=== PATIENT | male | born 1995 | race African-American/Black ===

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

== ENCOUNTER 2017-09-10 06:15 | Emergency (ER) | payer OTHER ==
[2017-09-10] MEDS ORDERED: IPRATROPIUM/ALBUTEROL 0.5-2.5 MG/3 ML AMPUL NEB ONE ×3 (06:20)
[2017-09-10] MEDS ORDERED: PREDNISONE 20 MG TABLET PO ONE (06:20)
--- NOTE | 2017-09-10 06:35 | ER Document Report ---
ED General - General Chief Complaint: Asthma Exacerbation Stated Complaint: DIFFICULTY BREATHING Time Seen by Provider: 09/10/17 06:19 Mode of Arrival: Ambulatory Information source: Patient Notes: 22 yr old male presents with complaints of cough sob as of yesterday. pt notes that he had uri symptoms, took otc cold medicine, but this morning he was sob. pt denies any nausea or vomiting. TRAVEL OUTSIDE OF THE [place] IN LAST 30 DAYS: No - HPI Onset: Yesterday Onset/Duration: Sudden Quality of pain: No pain Severity: Mild Pain Level: Denies Associated symptoms: Nonproductive cough, Shortness of breath Exacerbated by: Denies Relieved by: Denies Similar symptoms previously: No Recently seen / treated by doctor: No - Related Data Allergies/Adverse Reactions: No Known Allergies Allergy (Verified 08/23/13 07:40) Past Medical History - Social History Smoking Status: Never Smoker Cigarette use (# per day): No Chew tobacco use (# tins/day): No Smoking Education Provided: No Family History: Reviewed & Not Pertinent Pulmonary Medical History: Reports: Hx Asthma Renal/ Medical History: Denies: Hx Peritoneal Dialysis - Immunizations Immunizations up to date: Yes Review of Systems - Review of Systems Notes: REVIEW OF SYSTEMS: CONSTITUTIONAL : Denies fever, chills, or sweats. Denies recent illness. EENT: Denies eye, ear, throat, or mouth pain or symptoms. Denies nasal or sinus congestion or discharge. Denies throat, tongue, or mouth swelling or difficulty swallowing. CARDIOVASCULAR: Denies chest pain. Denies palpitations or racing or irregular heart beat. Denies ankle edema. RESPIRATORY: admits to sob, wheezing GASTROINTESTINAL: Denies abdominal pain or distention. Denies nausea, vomiting , or diarrhea. Denies blood in vomitus, stools, or per rectum. Denies black, tarry stools. Denies constipation. GENITOURINARY: Denies difficulty urinating, painful urination, burning, frequency, blood in urine, or discharge. MUSCULOSKELETAL: Denies back or neck pain or stiffness. Denies joint pain or swelling. SKIN: Denies rash, lesions or sores. HEMATOLOGIC : Denies easy bruising or bleeding. LYMPHATIC: Denies swollen, enlarged glands. NEUROLOGICAL: Denies confusion or altered mental status. Denies passing out or loss of consciousness. Denies dizziness or lightheadedness. Denies headache. Denies weakness or paralysis or loss of use of either side. Denies problems with gait or speech. Denies sensory loss, numbness, or tingling. Denies seizures. PSYCHIATRIC: Denies anxiety or stress. Denies depression, suicidal ideation, or homicidal ideation. ALL OTHER SYSTEMS REVIEWED AND NEGATIVE. Dictation was performed using [employer] voice recognition software PHYSICAL EXAMINATION: GENERAL: Well-appearing, well-nourished and in no acute distress. HEAD: Atraumatic, normocephalic. EYES: Pupils equal round and reactive to light, extraocular movements intact, sclera anicteric, conjunctiva are normal. ENT: Nares patent, oropharynx clear without exudates. Moist mucous membranes. NECK: Normal range of motion, supple without lymphadenopathy LUNGS:no wheezing, no resp distress, decreased breath sounds all throughout HEART: Regular rate and rhythm without murmurs ABDOMEN: Soft, nontender, nondistended abdomen. No guarding, no rebound. No masses appreciated. Musculoskeletal: Normal range of motion, no pitting or edema. No cyanosis. NEUROLOGICAL: Cranial nerves grossly intact. Normal speech, normal gait. Normal sensory, motor exams PSYCH: Normal mood, normal affect. SKIN: Warm, Dry, normal turgor, no rashes or lesions noted. Physical Exam - Vital signs Vitals: Temp Pulse Resp BP Pulse Ox 98.2 F 98 26 H 152/69 H 95 09/10/17 06:20 09/10/17 06:20 09/10/17 06:20 09/10/17 06:20 09/10/17 06:20 Course - Re-evaluation Re-evalutation: 09/10/17 06:35 Duo nebs steroids ordered patient overall looks quite well is in no distress 09/10/17 08:25 after breathing treatments patient states he feels better, will dc home with inhlaer and steroids and extremely close follow up After performing a Medical Screening Examination, I estimate there is LOW risk for ACUTE CORONARY SYNDROME, PULMONARY EMBOLI, RESPIRATORY FAILURE, SEPSIS OR MENINGITIS, thus I consider the discharge disposition reasonable. I have reevaluated this patient multiple times and no significant life threatening changes are noted. The patient and I have discussed the diagnosis and risks, and we agree with discharging home with close follow-up. We also discussed returning to the Emergency Department immediately if new or worsening symptoms occur. We have discussed the symptoms which are most concerning (e.g., changing or worsening pain, trouble swallowing or breathing, neck stiffness, fever) that necessitate immediate return. - Vital Signs Vital signs: Temp Pulse Resp BP Pulse Ox 98.2 F 98 25 H 132/76 H 95 09/10/17 06:20 09/10/17 06:20 09/10/17 07:55 09/10/17 07:55 09/10/17 07:55 - Diagnostic Test Radiology reviewed: Image reviewed, Reports reviewed Discharge - Discharge Clinical Impression: URI (upper respiratory infection) Qualifiers: URI type: unspecified viral URI Qualified Code(s): J06.9 - Acute upper respiratory infection, unspecified; B97.89 - Other viral agents as the cause of diseases classified elsewhere; B97.89 - Other viral agents as the cause of diseases classified elsewhere Condition: Stable Disposition: HOME, SELF-CARE Instructions: Upper Respiratory Illness ([facility]) Additional Instructions: Follow up with your physician tomorrow for further care or return to the ED IMMEDIATELY if symptoms worsen or new concerns occur. If you cannot afford to follow up with your primary care physician a list of low cost clinics have been provided at the end of your discharge papers as well. Prescriptions: Prednisone [Deltasone 20 mg Tablet] 3 tab PO DAILY 5 Days tablet
--- NOTE | 2017-09-10 08:04 | RADIOLOGY REPORT (SQ) ---
EXAM DESCRIPTION: CHEST PA/LAT CLINICAL HISTORY: left lower lobe pain COMPARISON: None. FINDINGS: Frontal and lateral views of the chest. The cardiomediastinal silhouette has normal size and contour. No consolidation, pneumothorax, or pleural effusion. No displaced rib fractures identified. Upper abdominal soft tissues are unremarkable. Leads overlie the chest. IMPRESSION: 1. No acute pulmonary process identified.
[2017-09-10] MEDS ORDERED: ALBUTEROL SULFATE HFA (90 MCG/PUFF) 8 GM MDI (1 MDI/ER DISP) IH PRN (08:37)
[2017-09-10 08:53] VITALS: BP 135/79
== END 2017-09-10 08:57 | disposition home or self-care (01) ==
LOC: ER 06:15
DX: J06.9 Acute upper respiratory infection, unspecified (principal); B97.89 Other viral agents as the cause of diseases classified elsewhere; J45.901 Unspecified asthma with (acute) exacerbation; R06.02 Shortness of breath; R05 Cough
CPT/HCPCS: 94640 ×2; 99285; 71020; J7512; J7620

== ENCOUNTER 2018-02-26 13:48 | Emergency (ER) | payer OTHER ==
[2018-02-26] MEDS ORDERED: ASPIRIN 81 MG TABLET, CHEWABLE PO ONE (14:39)
--- NOTE | 2018-02-26 14:42 | ER Document Report ---
ED Medical Screen (RME) - General Chief Complaint: Chest Pain Stated Complaint: CHEST PAIN Time Seen by Provider: 02/26/18 14:31 Notes: RAPID MEDICAL EVALUATION DISCLOSURE I have seen this patient as part of a Rapid Medical Evaluation and, if applicable, placed any initially appropriate orders. The patient will be seen and fully evaluated, including a full history and physical exam, by a provider ( in Main ED or Fast Track) when a room becomes available. 22-year-old male here with complaints of midsternal chest pain ongoing for the past 4 weeks. The pain lasts for 10-15 seconds each time he has an episode. The pain is not worse with exertion or breathing. He has been having about 3-4 episodes per week since onset. He does not have any shortness of breath lightheadedness diaphoresis nausea vomiting numbness tingling. Today while he was at work he had an episode of the pain. Someone was asking him questions about his chest pain and specifically asked him if he had any left arm pain ( which he did not have before his coworkers questioning), and immediately after being asked this question he became anxious and his left arm started hurting. The symptoms have resolved and he does not currently have any symptoms. He denies any hypertension diabetes hyperlipidemia tobacco or cocaine use. No prior history of CAD DVT PE. EXAM CTAB RRR Minimal to mild TTP of the left parasternal border at ribs 3-4 TRAVEL OUTSIDE OF THE [place] IN LAST 30 DAYS: No - Related Data Allergies/Adverse Reactions: No Known Allergies Allergy (Verified 08/23/13 07:40) Past Medical History - Social History Frequency of alcohol use: None Drug Abuse: None Pulmonary Medical History: Reports: Hx Asthma Renal/ Medical History: Denies: Hx Peritoneal Dialysis - Immunizations Immunizations up to date: Yes Physical Exam - Vital signs Vitals: Temp Pulse Resp BP Pulse Ox 98.7 F 55 L 16 113/46 L 99 02/26/18 14:04 02/26/18 14:04 02/26/18 14:04 02/26/18 14:04 02/26/18 14:04 Course - Vital Signs Vital signs: Temp Pulse Resp BP Pulse Ox 98.7 F 55 L 16 113/46 L 99 02/26/18 14:04 02/26/18 14:04 02/26/18 14:04 02/26/18 14:04 02/26/18 14:04
--- NOTE | 2018-02-26 15:27 | RADIOLOGY REPORT (SQ) ---
EXAM DESCRIPTION: CHEST 2 VIEWS COMPLETED DATE/TIME: 02/26/2018 3:11 pm REASON FOR STUDY: CP COMPARISON: 09/10/2017. EXAM PARAMETERS: NUMBER OF VIEWS: two views TECHNIQUE: Digital Frontal and Lateral radiographic views of the chest acquired. RADIATION DOSE: NA LIMITATIONS: none FINDINGS: LUNGS AND PLEURA: No opacities, masses or pneumothorax. No pleural effusion. MEDIASTINUM AND HILAR STRUCTURES: No masses or contour abnormalities. HEART AND VASCULAR STRUCTURES: Heart normal size. No evidence for failure. BONES: No acute findings. HARDWARE: None in the chest. OTHER: No other significant finding. IMPRESSION: NO ACUTE RADIOGRAPHIC FINDING IN THE CHEST. TECHNICAL DOCUMENTATION: JOB ID: [id number] [employer]- All Rights Reserved Reading location - IP/workstation name: [email or web address]
--- NOTE | 2018-02-26 15:30 | ER Document Report ---
ED General - General Chief Complaint: Chest Pain Stated Complaint: CHEST PAIN Time Seen by Provider: 02/26/18 14:31 Notes: 22-year-old male here with complaints of midsternal chest pain ongoing for the past 4 weeks. The pain lasts for 10-15 seconds each time he has an episode. The pain is not worse with exertion or breathing. He has been having about 3-4 episodes per week since onset. He does not have any shortness of breath lightheadedness diaphoresis nausea vomiting numbness tingling. Today while he was at work he had an episode of the pain. Someone was asking him questions about his chest pain and specifically asked him if he had any left arm pain ( which he did not have before his coworkers questioning), and immediately after being asked this question he became anxious and his left arm started hurting. The symptoms have resolved and he does not currently have any symptoms. He denies any hypertension diabetes hyperlipidemia tobacco or cocaine use. No prior history of CAD DVT PE. TRAVEL OUTSIDE OF THE [place] IN LAST 30 DAYS: No - Related Data Allergies/Adverse Reactions: No Known Allergies Allergy (Verified 08/23/13 07:40) Past Medical History - Social History Smoking Status: Never Smoker Frequency of alcohol use: None Drug Abuse: None Family History: Reviewed & Not Pertinent Patient has suicidal ideation: No Patient has homicidal ideation: No Pulmonary Medical History: Reports: Hx Asthma Renal/ Medical History: Denies: Hx Peritoneal Dialysis - Immunizations Immunizations up to date: Yes Review of Systems - Review of Systems Notes: See history of present illness for pertinent positive review of systems; otherwise all review of systems have been reviewed and are negative Physical Exam - Vital signs Vitals: Temp Pulse Resp BP Pulse Ox 98.7 F 55 L 16 113/46 L 99 02/26/18 14:04 02/26/18 14:04 02/26/18 14:04 02/26/18 14:04 02/26/18 14:04 - Notes Notes: PHYSICAL EXAMINATION: GENERAL: Well-appearing and in no acute distress. HEAD: Atraumatic, normocephalic. EYES: Pupils equal round and reactive to light, extraocular movements intact, sclera anicteric, conjunctiva are normal. ENT: nares patent, oropharynx clear without exudates. Moist mucous membranes. NECK: Normal range of motion, supple without lymphadenopathy LUNGS: CTAB and equal. No wheezes rales or rhonchi. HEART: Regular rate and rhythm without murmurs. Mild TTP of the left parasternal border at ribs 3-4 ABDOMEN: Soft, no tenderness. No facial grimacing/wincing upon palpation. No guarding, no rebound. EXTREMITIES: Normal range of motion, no pitting edema. No cyanosis. NEUROLOGICAL: Cranial nerves grossly intact. Normal sensory/motor exams. PSYCH: Normal mood, normal affect. SKIN: Warm, Dry, normal turgor, no rashes or lesions noted Course - Re-evaluation Re-evalutation: 02/26/18 15:30 MEDICAL DECISION MAKING: Low risk factors for ACS PE so I have low clinical suspicion for this His EKG shows some diffuse SC depressions so pericarditis is certainly a consideration Chest x-ray is unremarkable with no acute emergency findings Discussed these findings with the patient and prescription for meloxicam Instructed follow-up PCP next day or few Patient understands and agrees to the plan of care - Vital Signs Vital signs: Temp Pulse Resp BP Pulse Ox 98.7 F 55 L 16 113/46 L 99 02/26/18 14:04 02/26/18 14:04 02/26/18 14:04 02/26/18 14:04 02/26/18 14:04 Discharge - Discharge Clinical Impression: Chest pain in adult Condition: Good Disposition: HOME, SELF-CARE Instructions: Pericarditis ([facility]) Additional Instructions: You were seen in the emergency department at [facility]. The x- ray did not show any emergency findings. Treatment for pericarditis is anti- inflammatory medications for several weeks. Meloxicam is an anti-inflammatory medication. Please followup with your primary physician in the next few days for further management/evaluation. Please return to the emergency department for worsening of symptoms or any symptom that you deem to be concerning or life- threatening. Thank you for allowing us to be part of your care. Prescriptions: Meloxicam 7.5 mg PO DAILYP PRN #30 tablet PRN Reason:
[2018-02-26 15:53] VITALS: BP 113/51
--- NOTE | 2018-02-26 19:34 | EKG REPORT ---
SEVERITY:- ABNORMAL ECG - SINUS RHYTHM ST ELEVATION SUGGESTS NORMAL VARIANT. : Confirmed by: Conner Rodrigez MD 26-Feb-2018 19:33:20
== END 2018-02-26 15:53 | disposition home or self-care (01) ==
LOC: ER 13:48
DX: R07.9 Chest pain, unspecified (principal); M79.602 Pain in left arm; F41.9 Anxiety disorder, unspecified; J45.909 Unspecified asthma, uncomplicated
CPT/HCPCS: 71046; 93005; 93010; 99285

== ENCOUNTER 2018-09-14 12:37 | Emergency (ER) | payer OTHER ==
[2018-09-14 12:50] VITALS: BP 136/70
[2018-09-14 14:15] LABS: AMORPHOUS SEDIMENT,URINE 1+ /HPF; APPEARANCE,URINE TURBID; BILIRUBIN,URINE NEGATIVE (NEGATIVE); COLOR,URINE YELLOW; GLUCOSE, URINE NEGATIVE (NEGATIVE); KETONES,URINE NEGATIVE (NEGATIVE); LEUKOCYTE ESTERASE,URINE NEGATIVE (NEGATIVE); NITRITE,URINE NEGATIVE (NEGATIVE); PROTEIN,URINE NEGATIVE (NEGATIVE); URINE SPECIFIC GRAVITY 1.023; UROBILINOGEN,URINE NEGATIVE mg/dL (<2.0)
[2018-09-14] MEDS ORDERED: CEFTRIAXONE INJ 250 MG VIAL IM ONE (14:37)
[2018-09-14] MEDS ORDERED: LIDOCAINE 1% INJ-PF (10 MG/ML) 30 ML SDV INJ ONE (14:37)
[2018-09-14] MEDS ORDERED: AZITHROMYCIN 250 MG TABLET PO ONE (14:37)
--- NOTE | 2018-09-14 14:40 | ER Document Report ---
HPI - HPI Time Seen by Provider: 09/14/18 13:57 Pain Level: 3 Notes: Patient is an otherwise healthy 23-year-old male who presents with chief complaint of pain and redness at the tip of his penis. Patient requesting STD testing. Patient unknown if he has been exposed to STDs. Patient does report he had gonorrhea a year ago. He states he was treated but was never retested. Past Medical History - General Information source: Patient - Social History Smoking Status: Never Smoker Frequency of alcohol use: Occasional Drug Abuse: None Family History: Reviewed & Not Pertinent Pulmonary Medical History: Reports: Hx Asthma Renal/ Medical History: Denies: Hx Peritoneal Dialysis Surgical Hx: Negative - Immunizations Immunizations up to date: Yes Vertical Provider Document - CONSTITUTIONAL Notes: PHYSICAL EXAMINATION: GENERAL: Well-appearing, well-nourished and in no acute distress. HEAD: Atraumatic, normocephalic. EYES: Pupils equal round extraocular movements intact, conjunctiva are normal. ENT: Nares patent NECK: Normal range of motion LUNGS: No respiratory distress Musculoskeletal: Normal range of motion NEUROLOGICAL: Normal speech, normal gait. PSYCH: Normal mood, normal affect. SKIN: Warm, Dry, normal turgor, no rashes or lesions noted. - INFECTION CONTROL TRAVEL OUTSIDE OF THE [place] IN LAST 30 DAYS: No Course - Re-evaluation Re-evalutation: Patient being tested for GC/chlamydia. We will treat patient prophylactically with Rocephin and azithromycin. - Vital Signs Vital signs: Temp Pulse Resp BP Pulse Ox 98.9 F 77 16 136/70 H 97 09/14/18 12:49 09/14/18 12:49 09/14/18 12:49 09/14/18 12:49 09/14/18 12:49 Discharge - Discharge Clinical Impression: Concern about STD in male without diagnosis Condition: Stable Disposition: HOME, SELF-CARE Additional Instructions: Your tested today for chlamydia, gonorrhea and urinary infections. The results are pending. He has been treated with azithromycin and Rocephin. We do this ahead of time in case you have an infection. I will call you in the next 2 hours if your results are positive. Please refrain from any unprotected sexual intercourse for at least the next 7 days if your results are positive. Follow- up with the health department for testing. Please notify any sexual partners if your results are positive.
[2018-09-14 15:47] LABS: CHLAM PCR NOT DETECTED (NOT DETECT); GON PCR NOT DETECTED (NOT DETECT)
== END 2018-09-14 15:04 | disposition home or self-care (01) ==
LOC: ER 12:37
DX: Z20.2 Contact with and (suspected) exposure to infections with a predominantly sexual mode of transmission (principal); N48.89 Other specified disorders of penis; L53.9 Erythematous condition, unspecified; J45.909 Unspecified asthma, uncomplicated
CPT/HCPCS: 99283; 96372; 81001; 87491; 87591; J3490; J0696